=== PATIENT | female | born 1995 | race Caucasian/White ===

== ENCOUNTER 2021-11-17 19:49 | Emergency (ER) | payer OTHER ==
[~2021-11-17] VITALS: Ht 154.9 cm; Wt 63.5 kg
[2021-11-18] MEDS ORDERED: STRIBILD (21:24)
== END 2021-11-17 22:26 | disposition home or self-care (01) ==
LOC: ER 19:49
DX: S61.249 Puncture wound with foreign body of unspecified finger without damage to nail (principal); L76.12 Accidental puncture and laceration of skin and subcutaneous tissue during other procedure; Y93.9 Activity, unspecified; Y92.230 Patient room in hospital as the place of occurrence of the external cause

== ENCOUNTER 2021-11-18 21:13 | Emergency (ER) | payer OTHER ==
[~2021-11-18] VITALS: Ht 154.9 cm; Wt 63.5 kg
[2021-11-18] MEDS ORDERED: STRIBILD (21:24)
== END 2021-11-18 21:45 | disposition home or self-care (01) ==
LOC: ER 21:13
DX: S61.239A Puncture wound without foreign body of unspecified finger without damage to nail, initial encounter (principal); W26.8XXA Contact with other sharp object(s), not elsewhere classified, initial encounter; Y93.89 Activity, other specified; Y92.89 Other specified places as the place of occurrence of the external cause; Y99.9 Unspecified external cause status; Z20.6 Contact with and (suspected) exposure to human immunodeficiency virus [HIV]

== ENCOUNTER 2022-03-16 14:37 | Emergency (ER) | payer OTHER ==
[~2022-03-16] VITALS: Ht 154.9 cm; Wt 59.0 kg
[~2022-03-16 14:37] MED LIST: STRIBILD
[2022-03-16] MEDS ORDERED: OSEL75CA PO (18:53)
== END 2022-03-16 19:21 | disposition home or self-care (01) ==
LOC: ER 14:37
DX: J09.X2 Influenza due to identified novel influenza A virus with other respiratory manifestations (principal); Z20.828 Contact with and (suspected) exposure to other viral communicable diseases

== ENCOUNTER 2022-09-06 14:41 | Emergency (ER) | payer OTHER ==
[~2022-09-06] VITALS: Ht 152.4 cm; Wt 59.0 kg
[~2022-09-06 14:41] MED LIST changes: +OSEL75CA PO
== END 2022-09-06 16:58 | disposition home or self-care (01) ==
LOC: ER 14:41
DX: U07.1 COVID-19 (principal); R00.2 Palpitations; R53.81 Other malaise; G44.89 Other headache syndrome; R50.9 Fever, unspecified

== ENCOUNTER → 2022-12-13 | Outpatient (CLI) | payer OTHER | END | disposition home or self-care (01) | LOC: MRI 13:22 | DX: M54.59 Other low back pain (principal); M54.16 Radiculopathy, lumbar region | CPT/HCPCS: 72148 ==

== ENCOUNTER 2023-01-30 10:30 | Outpatient (CLI) | payer OTHER | END 2023-01-30 10:40 | disposition home or self-care (01) | LOC: PPH VACUNA 10:30 | PROVIDERS: ATTEND Emergency Medicine Pediatric Emergency Medicine | DX: Z23 Encounter for immunization (principal) | CPT/HCPCS: 90686; G0008 ==

== ENCOUNTER 2023-03-16 17:56 | Emergency (ER) | payer OTHER ==
[~2023-03-16] VITALS: Ht 154.9 cm; Wt 61.7 kg
[2023-03-16 19:25] LABS: URINE APPEARANCE Cloudy; URINE BILIRRUBIN Negative (NEGATIVE); URINE BLOOD Small; URINE COLOR Yellow; URINE GLUCOSE Negative (NEGATIVE); URINE LEUKOCYTE Negative; URINE NITRATE Negative; URINE PROTEIN Trace (NEGATIVE)
[2023-03-16 19:29] LABS: URINE BACTERIA 2227.6 uL (0.0-1933); URINE EPITHELIAL CELLS 46.5 uL (0.0-38.8); URINE RBC 109.7 uL (0.0-20.8); URINE WBC 23.9 uL (0.0-23.2)
[2023-03-16 19:30] LABS: HEMOGLOBIN 12.9 g/dL (12.0-15.00); MEAN CELL VOLUME 85.5 fL (80.00-100.00); MEAN CORPUSCULAR HGB CONC 33.9 g/dl (32.0-36.0); PLATELET COUNT 284 K/uL (150-450); RED BLOOD COUNT 4.44 M/uL (4.00-6.00); RED CELL DISTRIBUTION WIDTH 13.1 % (11.5-14.5)
[2023-03-16 19:49] LABS: CALCIUM 8.7 mg/dL (8.5-10.1); CREATININE SERUM 0.73 mg/dL (0.55-1.02); GFR 95.63; POTASSIUM 3.51 mEq/L (3.5-5.1)
== END 2023-03-16 23:57 | disposition home or self-care (01) ==
LOC: ER 17:57
PROVIDERS: Emergency Medicine
DX: K52.89 Other specified noninfective gastroenteritis and colitis (principal)

== ENCOUNTER 2023-07-10 07:15 | Emergency (ER) | payer OTHER ==
[~2023-07-10] VITALS: Ht 154.9 cm; Wt 64.0 kg
[2023-07-10] MEDS ORDERED: KETOROLAC TROMETHAMINE 15 MG VIAL IV STA (08:40)
[2023-07-10] MEDS ORDERED: METHYLPREDNISOLONE SOD SUCC 40 MG VIAL IV STA (08:41)
[2023-07-10] MEDS ORDERED: ORPHENADRINE CITRATE 30 MG/ML AMPUL IM STA (08:41)
[2023-07-10] MEDS ORDERED: METAXALONE800 MG PO (10:26)
[2023-07-10] MEDS ORDERED: ADVIL DUAL ACT1 EACH PO (10:26)
[2023-07-10] MEDS ORDERED: MEDROLPACK PO (10:26)
[2023-07-14] MEDS ORDERED: METAXALONE800 MG PO (15:57)
[2023-07-14] MEDS ORDERED: KETO10TA2 PO (15:58)
== END 2023-07-10 10:24 | disposition home or self-care (01) ==
LOC: ER 07:15
DX: M70.71 Other bursitis of hip, right hip (principal)

== ENCOUNTER 2024-01-08 03:55 | Outpatient (CLI) | payer OTHER ==
[~2024-01-08 03:55] MED LIST changes: +ADVIL DUAL ACT1 EACH PO; +KETO10TA2 PO; +MEDROLPACK PO; +METAXALONE800 MG PO
== END 2024-01-08 04:30 | disposition home or self-care (01) ==
LOC: PPH VACUNA 03:55
PROVIDERS: ATTEND Emergency Medicine Pediatric Emergency Medicine
DX: Z23 Encounter for immunization (principal)

== ENCOUNTER 2024-05-05 06:56 | Emergency (ER) | payer OTHER ==
[~2024-05-05] VITALS: Ht 154.9 cm; Wt 65.8 kg
[2024-05-05 07:28] VITALS: BP 129/86; O2SAT 100
[2024-05-05] MEDS ORDERED: NORFLEX100MG PO (08:37)
[2024-05-05] MEDS ORDERED: DICLOFENAC SODI75 MG PO (08:37)
[2024-05-05] MEDS ORDERED: KETOROLAC TROMETHAMINE 60 MG VIAL IM ONE ×2 (08:41→08:45)
[2024-05-05] MEDS ORDERED: TRIAMCINOLONE ACETONIDE 40 MG/ML VIAL ONE (08:41)
[2024-05-05] MEDS ORDERED: TRIAMCINOLONE ACETONIDE 40 MG/ML VIAL IM ONE (08:45)
== END 2024-05-05 09:14 | disposition home or self-care (01) ==
LOC: ER 06:59
DX: M54.89 Other dorsalgia (principal)

== ENCOUNTER → 2024-05-24 12:05 | Outpatient (CLI) | payer OTHER ==
[~2024-05-24 12:05] MED LIST changes: +DICLOFENAC SODI75 MG PO; +NORFLEX100MG PO
== END | disposition home or self-care (01) ==
LOC: RAD 12:05
PROVIDERS: ATTEND Internal Medicine Critical Care Medicine
DX: B18.2 Chronic viral hepatitis C (principal); R05.9 Cough, unspecified

== ENCOUNTER 2025-01-19 16:20 | Outpatient (CLI) | payer OTHER | END 2025-01-19 16:30 | disposition home or self-care (01) | LOC: PPH VACUNA 16:20 | PROVIDERS: ATTEND Emergency Medicine Pediatric Emergency Medicine | DX: Z23 Encounter for immunization (principal) ==